=== PATIENT | female | born 1990 | race Caucasian/White ===

== ENCOUNTER 2017-02-19 13:43 | Emergency (ER) | payer MEDICAID ==
[2017-02-19 13:49] VITALS: TEMP 98.7
[2017-02-19 14:21] LABS: HCG,QUALITATIVE URINE NEGATIVE (NEGATIVE)
--- NOTE | 2017-02-19 14:38 | C.PDOC ---
History Of Present Illness 26 year old female presents to the ED with complaints of suprapubic abdominal tenderness with spotting for two days. Patient states LMP was 01/02/2017, she is irregular with her menstrual cycle, and is attempting to get . She took a test at home that was negative and denies fever, nausea, vomiting, or dysuria. Time Seen by Provider: 02/19/17 14:09 Chief Complaint (Nursing): Abdominal Pain History Per: Patient History/Exam Limitations: no limitations Onset/Duration Of Symptoms: Days (2 days ) Current Symptoms Are (Timing): Still Present Location Of Pain/Discomfort: Suprapubic Radiation Of Pain To:: None Quality Of Discomfort: "Pain" Associated Symptoms: denies: Fever, Chills, Nausea, Vomiting, Urinary Symptoms Recent travel outside of the [place]: No Abnormal Vaginal Bleeding: Yes Last Menstral Period: 01/02/2017 Past Medical History Reviewed: Historical Data, Nursing Documentation, Vital Signs Vital Signs: Last Vital Signs Temp 98.7 F 02/19/17 13:47 Pulse 77 02/19/17 17:46 Resp 18 02/19/17 17:46 BP 113/69 02/19/17 17:46 Pulse Ox 100 02/19/17 17:46 - [facility] Procedures APPLICATION OF SPLINT (01/25/15) Family History: States: Unknown Family Hx - Social History Hx Tobacco Use: No Hx Alcohol Use: No Hx Substance Use: No - Immunization History Hx Tetanus Toxoid Vaccination: No Hx Influenza Vaccination: No Hx Pneumococcal Vaccination: No Review Of Systems Constitutional: Negative for: Fever, Chills Cardiovascular: Negative for: Chest Pain Respiratory: Negative for: Shortness of Breath Gastrointestinal: Positive for: Abdominal Pain (suprapubic pain ). Negative for : Nausea, Vomiting Genitourinary: Positive for: Vaginal Bleeding. Negative for: Dysuria Musculoskeletal: Negative for: Back Pain Physical Exam - Physical Exam Appears: Non-toxic, No Acute Distress Skin: Warm, Dry Head: Atraumatic Eye(s): bilateral: Normal Inspection, PERRL, EOMI Oral Mucosa: Moist Neck: Supple Chest: Symmetrical, No Deformity Cardiovascular: Rhythm Regular Respiratory: Normal Breath Sounds, No Wheezing Gastrointestinal/Abdominal: Soft, Tenderness (mild suprapubic tenderness), No Distention, No Guarding, No Rebound Neurological/Psych: Oriented x3 ED Course And Treatment O2 Sat by Pulse Oximetry: 97 (room air ) - CT Scan/US pelvic US Other Rad Studies (CT/US): Read By Radiologist, Radiology Report Reviewed CT/US Interpretation: Accession No. : [id number]. Patient Name / ID : EM CAPONE S / [id number]. Exam Date : 02/19/2017 15:14:02 ( Approved ). Study Comment : Sex / Age : F / 26Y. Creator : Kristina Butler MD. Dictator : Kristina Butler MD. Superintendent Stevedoring : Middle [employer] Assistant Principal : Kristina Butler MD. Approver2 : Report Date : 02/19/2017 16:04:27. My Comment : . HISTORY: pelvic pain. COMPARISON: None available. TECHNIQUE: Real-time transabdominal pelvic ultrasound was performed. In addition a transvaginal pelvic ultrasound was necessary to better depict pelvic anatomy. FINDINGS: UTERUS: Measures 8.5 x 4.3 x 5.4 cm. Anteverted. ENDOMETRIUM: Measures 8 mm in diameter. CERVIX: No cervical abnormality identified. RIGHT OVARY: Measures 2.7 x 1.9 x 2.6 cm. Blood flow is demonstrated. LEFT OVARY: Measures 3.5 x 2.4 x 3.1 cm. Blood flow is demonstrated. 2.9 x 1.7 x 2.2 cm rounded anechoic avascular lesion compatible with a cyst. FREE FLUID: No significant free fluid noted. OTHER FINDINGS: None. IMPRESSION: 2.9 cm probable left ovarian cyst. Progress Note: Ultrasound and UA were ordered. left ovarian cyst was found. Patient wa d/c home with instructions to f/u with WALL ATTENDANT. Disposition - Disposition Disposition: HOME/ ROUTINE Disposition Time: 17:22 Condition: STABLE Additional Instructions: Follow up with OBGYN within 1-2 days. Return to ED if feel worse. Prescriptions: Naproxen [Naprosyn] 1 tab PO BID PRN #25 tab PRN Reason: Pain Famotidine [Pepcid] 20 mg PO BID #20 tab Ondansetron [Zofran Odt] 1 - 2 tab PO .Q4-6H PRN #20 odt PRN Reason: Nausea/Vomiting Instructions: Ovarian Cyst (ED) Print Language: BRUNEIAN - Clinical Impression Clinical Impression: Ovarian cyst, Pelvic cyst - Scribe Statement The provider has reviewed the documentation as recorded by the Scribketty Iniguez All medical record entries made by the Viola were at my direction and personally dictated by me. I have reviewed the chart and agree that the record accurately reflects my personal performance of the history, physical exam, medical decision making, and the department course for this patient. I have also personally directed, reviewed, and agree with the discharge instructions and disposition.
[2017-02-19 14:43] LABS: SQUAMOUS EPITHIAL 2 /hpf (0-5); URINE BACTERIA RARE (<OCC); URINE BILIRUBIN NEGATIVE (NEGATIVE); URINE BLOOD 3+ (NEGATIVE); URINE CLARITY Hazy (Clear); URINE COLOR Yellow (YELLOW); URINE GLUCOSE (UA) NORMAL (Normal); URINE LEUKOCYTE ESTERASE NEG Leu/uL (Negative); URINE NITRATE NEGATIVE (NEGATIVE); URINE PROTEIN NEGATIVE (NEGATIVE); URINE UROBILINOGEN NORMAL mg/dL (0.2-1.0)
--- NOTE | 2017-02-19 16:06 | US ---
HISTORY: pelvic pain COMPARISON: None available. TECHNIQUE: Real-time transabdominal pelvic ultrasound was performed. In addition a transvaginal pelvic ultrasound was necessary to better depict pelvic anatomy. FINDINGS: UTERUS: Measures 8.5 x 4.3 x 5.4 cm. Anteverted. ENDOMETRIUM: Measures 8 mm in diameter. CERVIX: No cervical abnormality identified. RIGHT OVARY: Measures 2.7 x 1.9 x 2.6 cm. Blood flow is demonstrated. LEFT OVARY: Measures 3.5 x 2.4 x 3.1 cm. Blood flow is demonstrated. 2.9 x 1.7 x 2.2 cm rounded anechoic avascular lesion compatible with a cyst. FREE FLUID: No significant free fluid noted. OTHER FINDINGS: None. IMPRESSION: 2.9 cm probable left ovarian cyst.
[2017-02-19 17:47] VITALS: BP 113/69; PULSE 77; RESP 18
[2017-02-19 22:03] VITALS: O2SAT 97
== END 2017-02-19 17:47 | disposition home or self-care (01) ==
LOC: C.ER 13:43
DX: N83.202 Unspecified ovarian cyst, left side (principal); N94.89 Other specified conditions associated with female genital organs and menstrual cycle

== ENCOUNTER 2017-03-08 13:42 | Emergency (ER) | payer MEDICAID ==
[2017-03-08 13:50] VITALS: O2SAT 100
--- NOTE | 2017-03-08 14:39 | C.PDOC ---
History Of Present Illness 26 yr old female presents to the ER with complaints of pelvic pain. Patient has frequent visits to the ER for similar complaints, last visit was February 19 and had a negative ultrasound. Patient has history of irregular menses. Denies fever , nausea, vomiting, diarrhea, dysuria, weakness or numbness. Time Seen by Provider: 03/08/17 14:09 Chief Complaint (Nursing): Abdominal Pain History Per: Patient History/Exam Limitations: no limitations Onset/Duration Of Symptoms: Days Current Symptoms Are (Timing): Still Present Past Medical History Reviewed: Historical Data, Nursing Documentation, Vital Signs Vital Signs: Last Vital Signs Temp 97.8 F 03/08/17 13:48 Pulse 80 03/08/17 13:48 Resp 18 03/08/17 13:48 BP 102/63 03/08/17 13:48 Pulse Ox 100 03/08/17 15:31 - [facility] Procedures APPLICATION OF SPLINT (01/25/15) Family History: States: No Known Family Hx - Social History Hx Tobacco Use: No Hx Alcohol Use: No Hx Substance Use: No - Immunization History Hx Tetanus Toxoid Vaccination: No Hx Influenza Vaccination: No Hx Pneumococcal Vaccination: No Review Of Systems Except As Marked, All Systems Reviewed And Found Negative. Constitutional: Negative for: Fever Gastrointestinal: Positive for: Other ((+) Pelvic pain ). Negative for: Nausea , Vomiting, Diarrhea Genitourinary: Negative for: Dysuria Neurological: Negative for: Weakness, Numbness Physical Exam - Physical Exam Appears: Non-toxic, No Acute Distress Skin: Warm, Dry, No Rash Head: Atraumatic, Normacephalic Oral Mucosa: Moist Cardiovascular: Rhythm Regular, No Murmur Respiratory: Normal Breath Sounds, No Rales, No Wheezing Gastrointestinal/Abdominal: Normal Exam, Soft, No Tenderness, No Guarding, No Rebound Extremity: Normal ROM, No Swelling Neurological/Psych: Oriented x3, Normal Speech, Normal Motor ED Course And Treatment - Laboratory Results Urine POC: Negative O2 Sat by Pulse Oximetry: 100 (RA) Pulse Ox Interpretation: Normal Medical Decision Making Medical Decision Making: PLAN: * POC * Urinalysis Disposition Counseled Patient/Family Regarding: Studies Performed, Diagnosis, Need For Followup, Rx Given - Disposition Referrals: [facility] [Outside] [facility] [Outside] Disposition: HOME/ ROUTINE Disposition Time: 16:07 Condition: IMPROVED Prescriptions: Naproxen 500 mg PO BID #30 tab Instructions: Pelvic Pain in Women (ED) Forms: [facility] (Malay) Print Language: MONGOLIAN - Clinical Impression Clinical Impression: Pelvic pain - Scribe Statement The provider has reviewed the documentation as recorded by the Andreeibketty Baldwin Provider Attestation: All medical record entries made by the Viola were at my direction and personally dictated by me. I have reviewed the chart and agree that the record accurately reflects my personal performance of the history, physical exam, medical decision making, and the department course for this patient. I have also personally directed, reviewed, and agree with the discharge instructions and disposition.
[2017-03-08 15:46] LABS: SQUAMOUS EPITHIAL 4 /hpf (0-5); URINE BILIRUBIN NEGATIVE (NEGATIVE); URINE BLOOD NEGATIVE (NEGATIVE); URINE CLARITY Hazy (Clear); URINE GLUCOSE (UA) NORMAL (Normal); URINE LEUKOCYTE ESTERASE NEG Leu/uL (Negative); URINE NITRATE NEGATIVE (NEGATIVE); URINE PROTEIN NEGATIVE (NEGATIVE); URINE UROBILINOGEN NORMAL mg/dL (0.2-1.0)
[2017-03-08 15:47] LABS: URINE COLOR YELLOW (YELLOW)
[2017-03-08 16:37] VITALS: BP 111/70; PULSE 78; RESP 16; TEMP 98.2
== END 2017-03-08 16:36 | disposition home or self-care (01) ==
LOC: C.ER 13:42
DX: R10.2 Pelvic and perineal pain (principal)
CPT/HCPCS: 81001; 96372; 99285; J1885

== ENCOUNTER 2017-06-14 10:57 | Emergency (ER) | payer SELFPAY ==
[2017-06-14 11:52] LABS: RBC URINE 2 /hpf (0-3); URINE BILIRUBIN NEGATIVE (NEGATIVE); URINE BLOOD NEGATIVE (NEGATIVE); URINE COLOR Amber (YELLOW); URINE GLUCOSE (UA) NORMAL (Normal); URINE KETONE NEGATIVE (NEGATIVE); URINE LEUKOCYTE ESTERASE NEG Leu/uL (Negative); URINE PROTEIN NEGATIVE (NEGATIVE); URINE UROBILINOGEN NORMAL mg/dL (0.2-1.0); WBC URINE 1 /hpf (0-5)
--- NOTE | 2017-06-14 11:53 | C.PDOC ---
History Of Present Illness 26 year old female presents to the ED for evaluation of left-sided adnexal pain which has been intermittent for the past 2 months. Patient has a history of cysts to the area, but has not followed up with her doctor yet as she was advised. Patient denies fever, chills, and has no other complaints at this time. Time Seen by Provider: 06/14/17 11:46 Chief Complaint (Nursing): Abdominal Pain History Per: Patient History/Exam Limitations: no limitations Onset/Duration Of Symptoms: Intermittent Episodes, Other (2 months ) Current Symptoms Are (Timing): Still Present Radiation Of Pain To:: None Quality Of Discomfort: "Pain" Associated Symptoms: denies: Fever, Chills Recent travel outside of the [place]: No Additional History Per: Patient Abnormal Vaginal Bleeding: No Past Medical History Reviewed: Historical Data, Nursing Documentation, Vital Signs Vital Signs: Last Vital Signs Temp 98.0 F 06/14/17 11:13 Pulse 71 06/14/17 11:13 Resp 18 06/14/17 11:13 BP 104/70 06/14/17 11:13 Pulse Ox 98 06/14/17 12:04 - Medical History PMH: No Chronic Diseases Surgical History: No Surg Hx - [facility] Procedures APPLICATION OF SPLINT (01/25/15) Family History: States: Unknown Family Hx - Social History Hx Tobacco Use: No Hx Alcohol Use: No Hx Substance Use: No - Immunization History Hx Tetanus Toxoid Vaccination: No Hx Influenza Vaccination: No Hx Pneumococcal Vaccination: No Review Of Systems Constitutional: Negative for: Fever, Chills Genitourinary: Positive for: Other (left adnexal pain ) Physical Exam - Physical Exam Appears: Non-toxic, No Acute Distress Skin: Normal Color, Warm, Dry Oral Mucosa: Moist Neck: Supple Chest: Symmetrical, No Deformity, No Tenderness Cardiovascular: Rhythm Regular, No Murmur Respiratory: Normal Breath Sounds, No Rales, No Rhonchi, No Wheezing Pelvic: Adnexal Tenderness (left-sided) Extremity: Normal ROM, Capillary Refill (less than 2 seconds ) Neurological/Psych: Oriented x3, Normal Speech, Normal Cognition Gait: Steady ED Course And Treatment O2 Sat by Pulse Oximetry: 98 (on RA) Pulse Ox Interpretation: Normal Medical Decision Making Medical Decision Making: Progress: Urinalysis and Transvaginal US ordered and reviewed. Tylenol PO administered. 218: pt observed on computer in nad. no rlq, llq ttp. no vb, discharge, adivse outpt fu return precautions Disposition - Disposition Referrals: [facility] [Outside] [facility] [Outside] [facility] [Outside] Alysha Ordonez MD [Staff Provider] - Disposition: HOME/ ROUTINE Disposition Time: 14:18 Condition: STABLE Additional Instructions: please follow up with your doctor/specialist. return to er with worsening symptoms or concerns. Instructions: Pelvic Pain in Women (ED), Ovarian Cyst (ED) Forms: [employer] (Afghan) - Clinical Impression Clinical Impression: Pelvic pain, Ovarian cyst - Scribe Statement The provider has reviewed the documentation as recorded by the Scribe (Kierra Choudhary) Provider Attestation: All medical record entries made by the Scribe were at my direction and personally dictated by me. I have reviewed the chart and agree that the record accurately reflects my personal performance of the history, physical exam, medical decision making, and the department course for this patient. I have also personally directed, reviewed, and agree with the discharge instructions and disposition.
--- NOTE | 2017-06-14 14:12 | US ---
HISTORY: left sided pelvic pain h/o of cyst COMPARISON: None available. TECHNIQUE: Transabdominal and transvaginal pelvic ultrasound was performed. FINDINGS: UTERUS: Measures 8.4 x 4.2 x 5.3 cm. Retroverted, normal in size with normal myometrial echotexture. . No fibroid or other mass lesion seen. ENDOMETRIUM: Measures 5.0 mm in diameter. Normal in appearance. CERVIX: No cervical abnormality identified. RIGHT OVARY: Measures 4.6 x 3.3 x 4.2 cm. No solid mass. Normal flow. There is a 3.4 x 2.2 x 3.0 cm simple cyst. LEFT OVARY: Measures 2.2 x 1.2 x 1.7 cm. No solid mass. Normal flow. FREE FLUID: No significant free fluid noted. OTHER FINDINGS: None. IMPRESSION: 3.4 cm simple cyst in the right ovary. No evidence of torsion.
[2017-06-14 14:43] VITALS: BP 100/64; PULSE 70; RESP 16; TEMP 98.7; O2SAT 96
== END 2017-06-14 14:45 | disposition home or self-care (01) ==
LOC: C.ER 10:57
DX: N83.291 Other ovarian cyst, right side (principal); R10.2 Pelvic and perineal pain

== ENCOUNTER 2017-08-18 10:52 | Day surgery (SDC) | payer BC ==
[2017-08-12 11:36] VITALS: BMI 25.8
[2017-08-18] MEDS ORDERED: Methylene Blue 10 mg/mL(10ml) IV ONE (12:15)
[2017-08-18] MEDS ORDERED: Bupivacaine HCl 0.25% PF (10 ml) Inj ONE (12:16)
[2017-08-18] MEDS ORDERED: Midazolam 2 MG/2 ML VIAL ONE (12:43)
[2017-08-18] MEDS ORDERED: Propofol 10 mg/ml Inj (20 ML) ONE (12:43)
[2017-08-18] MEDS ORDERED: Lactated Ringer's 1,000 ML IV ONE ×3 (12:55→14:20)
[2017-08-18] MEDS ORDERED: Neostigmine Methylsulfate 3mg/3ml Syringe IV ONE (14:04)
--- NOTE | 2017-08-18 14:24 | PCM.SURG1 ---
Surgeon's Initial Post Op Note - Surgeon's Notes Surgeon: Dr. Constance Powell Multiplex Operator: Dr. Delgadillo Type of Anesthesia: General Endo Pre-Operative Diagnosis: chronic pelvic pain, dysmenorrhea, menorrhagia, PCOS, hx of ovarian cyst, infertility Operative Findings: Uterus approx 10 week sized, normal appearing intrauterine cavity with bilateral ostia seen. Fallopian tubes patent bilaterally, adhesion between omentum and anterior abdominal wall, multiple follicles in ovaries bilaterally. Otherwise normal anatomy. Post-Operative Diagnosis: same Operation Performed: Laparoscopic ovarian drilling, lysis of adhesions, chromotubation, hysteroscopy D&C. Specimen/Specimens Removed: endometrial curettings Estimated Blood Loss: EBL {In ML}: 5 Blood Products Given: N/A Drains Used: No Drains Post-Op Condition: Good Date of Surgery/Procedure: 08/18/17 Time of Surgery/Procedure: 14:25
[2017-08-18] MEDS ORDERED: HYDROmorphone 0.5 mg/0.5 ml ISec IVP PRN (14:26)
--- NOTE | 2017-08-18 14:33 | CP.PCM.DIS ---
Provider - Provider Date of Admission: 08/18/17 Attending physician: Constance Powell Time Spent in preparation of Discharge (in minutes): 10 Diagnosis - Discharge Diagnosis (1) Chronic female pelvic pain Status: Acute (2) PCOS (polycystic ovarian syndrome) Status: Acute (3) Menorrhagia Status: Acute (4) Ovarian cyst Status: Acute Hospital Course - Hospital Course Hospital Course: Patient underwent laparoscopic ovarian drilling, lysis of adhesions, chromotubation, hysteroscopy d&c and tolerated the procedure well. She was discharged home in stable condition once she was ambulating, voiding and tolerating regular diet. Discharge Exam - Eye Exam Eye Exam: Normal appearance - Respiratory Exam Respiratory Exam: NORMAL BREATHING PATTERN - GI/Abdominal Exam GI & Abdominal Exam: Unremarkable - Neurological Exam Neurological exam: Alert, Oriented x3 - Psychiatric Exam Psychiatric exam: Normal Affect, Normal Mood - Skin Skin Exam: Normal Color Discharge Plan - Follow Up Plan Condition: GOOD Disposition: HOME/ ROUTINE
[2017-08-18 18:59] VITALS: RESP 16
[2017-08-18 19:05] VITALS: BP 93/70; PULSE 85; TEMP 97.8; O2SAT 98
--- NOTE | 2017-08-18 22:05 | OP ---
PROCEDURE DATE: SURGEON: Constance Powell MD RUBBER MILL TENDER SURGEON: Yoni Delgadillo M.D. TYPE OF ANESTHESIA: General endotracheal. PREOPERATIVE DIAGNOSES: Chronic pelvic pain, dysmenorrhea, menorrhagia, polycystic ovary syndrome, history of ovarian cysts, and infertility. INTRAOPERATIVE FINDINGS: The uterus is approximately 10-week size, normal-appearing intrauterine cavity with bilateral ostia seen, fallopian tubes patent bilaterally, adhesions between omentum and anterior abdominal wall, multiple follicles in ovaries bilaterally. Otherwise, normal anatomy. POSTOPERATIVE DIAGNOSES: Chronic pelvic pain, dysmenorrhea, menorrhagia, polycystic ovary syndrome, history of ovarian cysts, and infertility. SURGERY PERFORMED: Laparoscopic ovarian drilling, lysis of adhesions, chromopertubation, hysteroscopy, dilation and curettage. SPECIMEN: The specimen removed was the endometrial curetting. ESTIMATED BLOOD LOSS: 5 mL. BLOOD PRODUCTS GIVEN: None. DRAINS: There were no drains used. POSTOPERATIVE CONDITION: Stable. DESCRIPTION OF PROCEDURE: After all relevant documentation was reviewed and signed by MD, patient was taken back to the OR room. She was placed in lithotomy position, prepped and draped in the usual sterile fashion after being placed under general anesthesia. Attention was then placed to the cervix, which was visualized with a bivalved speculum and the posterior lip of the cervix was then grasped with single-tooth tenaculum and the cervix was gently serially dilated until the hysteroscope could be introduced. Once the hysteroscope was in, the previously mentioned findings were noted. The hysteroscope was then removed. A gentle sharp curettage was performed. The HUMI was then introduced and the single-tooth tenaculum and speculum were removed. Attention was then placed to the patient's abdomen where a 5-mm umbilical incision was made and then we entered the intraabdominal cavity under direct visualization. Once inside the intraabdominal cavity and pneumoperitoneum was achieved, attention was then placed to the left lower quadrant where a 5-mm incision was made and a 5-mm port was introduced under direct visualization. In the similar fashion, a right lower quadrant port was also introduced 5 mm under direct visualization. A dense adhesion of omentum was noted to the anterior abdominal wall anterior to the uterus and this was lysed with the use of a LigaSure. Once the adhesion was removed, attention was then placed to the left fallopian tube and the left ovary. At which point, the left ovary was drilled. In a similar fashion, the right ovary was tented up and also proceeded with multiple drilling from the right. Once this was completed, chromopertubation was performed and bilateral fallopian tubes were noted to be patent. Excellent hemostasis was noted. The pneumoperitoneum was evacuated and the ports were closed with the use of 3-0 Monocryl in a subcuticular fashion. Excellent hemostasis was noted. The HUMI was removed. No active bleeding was noted and the patient was then awoken from general anesthesia and taken back to the recovery room in stable condition. All lap counts and instrument counts were correct x2. Constance Powell MD
== END 2017-08-18 19:05 | disposition home health service (06) ==
LOC: C.SDS 10:52
PROVIDERS: ATTEND Obstetrics & Gynecology
DX: N83.02 Follicular cyst of left ovary (principal); N92.0 Excessive and frequent menstruation with regular cycle; N94.6 Dysmenorrhea, unspecified
CPT/HCPCS: 58558; 88305; J1170; J2250; J2704; J2710; J3010; J7120

== ENCOUNTER 2017-09-29 12:54 | Emergency (ER) | payer BC, OTHER ==
[2017-09-29 12:55] VITALS: BMI 25.8
[2017-09-29 13:01] VITALS: RESP 20
[2017-09-29 13:29] LABS: HCG,QUALITATIVE URINE NEGATIVE (NEGATIVE)
[2017-09-29 13:44] LABS: URINE BILIRUBIN NEGATIVE (NEGATIVE); URINE BLOOD SMALL (NEGATIVE); URINE CLARITY Hazy (Clear); URINE COLOR YELLOW (YELLOW); URINE GLUCOSE (UA) NEGATIVE (Normal)
[2017-09-29 13:45] LABS: URINE LEUKOCYTE ESTERASE NEGATIVE Leu/uL (Negative); URINE NITRATE NEGATIVE (NEGATIVE); URINE PROTEIN NEGATIVE (NEGATIVE); URINE UROBILINOGEN 0.2 mg/dL (0.2-1.0)
[2017-09-29 13:46] LABS: URINE BACTERIA OCC (<OCC)
--- NOTE | 2017-09-29 14:06 | C.PDOC ---
History Of Present Illness 27 y/o female presents to ED with complaints of vaginal discharge with abdominal cramping for 2 days. Patient is unsure if symptoms are secondary to period and states she is trying to get . Patient is requesting test and denies back pain, dysuria, nausea, vomiting or diarrhea. Time Seen by Provider: 09/29/17 13:14 Chief Complaint (Nursing): Abdominal Pain History Per: Patient History/Exam Limitations: no limitations Onset/Duration Of Symptoms: Days Current Symptoms Are (Timing): Still Present Quality Of Discomfort: Cramping Past Medical History Reviewed: Historical Data, Nursing Documentation, Vital Signs Vital Signs: Last Vital Signs Temp 97.8 F 09/29/17 14:20 Pulse 71 09/29/17 14:20 Resp 20 09/29/17 14:20 BP 112/79 09/29/17 14:20 Pulse Ox 100 09/29/17 14:37 - Medical History PMH: No Chronic Diseases Surgical History: No Surg Hx - [facility] Procedures APPLICATION OF SPLINT (01/25/15) Family History: States: No Known Family Hx - Social History Hx Tobacco Use: No Hx Alcohol Use: No Hx Substance Use: No - Immunization History Hx Tetanus Toxoid Vaccination: No Hx Influenza Vaccination: No Hx Pneumococcal Vaccination: No Review Of Systems Constitutional: Negative for: Fever, Chills Gastrointestinal: Positive for: Abdominal Pain Genitourinary: Positive for: Vaginal Discharge. Negative for: Dysuria, Vaginal Bleeding Musculoskeletal: Negative for: Back Pain Skin: Negative for: Rash Physical Exam - Physical Exam Appears: Non-toxic, No Acute Distress Skin: Warm, Dry, No Rash Head: Atraumatic, Normacephalic Oral Mucosa: Moist Neck: Normal ROM, Supple Cardiovascular: Rhythm Regular, No Murmur Respiratory: Normal Breath Sounds, No Rales, No Rhonchi, No Wheezing Gastrointestinal/Abdominal: Soft, No Tenderness, No Guarding, No Rebound Back: No CVA Tenderness Neurological/Psych: Oriented x3, Normal Speech ED Course And Treatment O2 Sat by Pulse Oximetry: 100 (RA) Pulse Ox Interpretation: Normal Medical Decision Making Medical Decision Making: test was negative. UA shows no UTI Patient remained well, seated comfortably in no distress. Patient informed of negative result, stable for discharge Disposition Counseled Patient/Family Regarding: Diagnosis, Need For Followup - Disposition Disposition: HOME/ ROUTINE Disposition Time: 14:03 Condition: STABLE Additional Instructions: Vaya a blackmon mdico o la clnica en 2-5 juarez sin falta, para mas evaluacin. [place] los medicamentos ness indicado. Volver a la yoanna de emergencia en cualquier momento si los sntomas persisten o empeoran. Instructions: Absent or Irregular Periods Forms: [employer] (Slovenian) Print Language: GREENLANDIC - POA Present On Arrival: None - Clinical Impression Clinical Impression: Negative test, DUB (dysfunctional uterine bleeding) - PA / VIBRATING SCREEN OPERATOR / Resident Statement MD/DO has reviewed & agrees with the documentation as recorded. - Scribe Statement The provider has reviewed the documentation as recorded by the Scribketty Gunter All medical record entries made by the Scribe were at my direction and personally dictated by me. I have reviewed the chart and agree that the record accurately reflects my personal performance of the history, physical exam, medical decision making, and the department course for this patient. I have also personally directed, reviewed, and agree with the discharge instructions and disposition.
[2017-09-29 14:21] VITALS: BP 112/79; PULSE 71; TEMP 97.8
[2017-09-29 14:36] VITALS: O2SAT 100
== END 2017-09-29 14:21 | disposition home or self-care (01) ==
LOC: C.ER 12:54
DX: N93.8 Other specified abnormal uterine and vaginal bleeding (principal); Z32.02 Encounter for pregnancy test, result negative

== ENCOUNTER 2017-10-12 17:03 | Emergency (ER) | payer BC ==
[2017-10-12 17:03] VITALS: BMI 25.8
[2017-10-12 17:11] VITALS: RESP 18; O2SAT 99
[2017-10-12 18:33] LABS: HCG,QUALITATIVE URINE NEGATIVE (NEGATIVE)
[2017-10-12 18:34] LABS: SQUAMOUS EPITHIAL 1 /hpf (0-5); URINE BACTERIA RARE (<OCC); URINE BILIRUBIN NEGATIVE (NEGATIVE); URINE BLOOD NEGATIVE (NEGATIVE); URINE CLARITY Clear (Clear); URINE COLOR Yellow (YELLOW); URINE GLUCOSE (UA) NORMAL (Normal); URINE LEUKOCYTE ESTERASE NEG Leu/uL (Negative); URINE PROTEIN NEGATIVE (NEGATIVE); URINE UROBILINOGEN NORMAL mg/dL (0.2-1.0)
[2017-10-12 19:02] LABS: BASO # 0.2 K/uL (0.0-0.2); BASO % 2.1 % (0.0-2.0); EOS % 0.4 % (0.0-4.0); HEMOGLOBIN 12.6 g/dL (11.0-16.0); LYMPH % 19.7 % (20.0-40.0); MEAN CELL VOLUME 85.2 fL (81.0-99.0); MEAN CORPUSCULAR HEMOGLOBIN 28.2 pg (27.0-31.0); MEAN CORPUSCULAR HGB CONC 33.1 g/dL (33.0-37.0); MEAN PLATELET VOLUME 9.1 fL (7.2-11.7); MONO # 0.8 K/uL (0.0-0.8); MONO % 8.4 % (0.0-10.0); NEUT % 69.4 % (50.0-75.0); NRBC % 0.1 % (0.0-2.0); RBC 4.45 Mil/uL (3.80-5.20)
[2017-10-12 19:04] LABS: WHITE BLOOD COUNT 10.1 K/uL (4.8-10.8)
[2017-10-12 19:11] LABS: ALB/GLOB RATIO 1.2 (1.0-2.1); ALBUMIN 4.3 g/dL (3.5-5.0); ALT/SGPT 31 U/L (9-52); AST/SGOT 25 U/L (14-36); BLOOD UREA NITROGEN 12 mg/dL (7-17); CALCIUM 9.1 mg/dl (8.6-10.4); GFR AFRICAN-AMERICAN > 60; GFR NON-AFRICAN AMERICAN > 60
[2017-10-12 21:16] VITALS: BP 98/64; PULSE 78; TEMP 98.4
--- NOTE | 2017-10-12 21:29 | US ---
EXAM: US Pelvis Complete, Transabdominal CLINICAL HISTORY: 27 years old, female; Pain; Pelvic pain; Prior surgery; Surgery date: 1-6 months; Surgery type: Ovarian surgery; Additional info: Pelvic pain. H/o ovarian cyst surgery. TECHNIQUE: Real-time transabdominal pelvic ultrasound (complete) with image documentation. COMPARISON: No relevant prior studies available. FINDINGS: Uterus/cervix: The uterus measures 10.3 x 4.4 x 6.3 cm. The endometrial stripe measures 9 mm. No myometrial mass. Right ovary: The right ovary is not seen as a separate structure transabdominally. Left ovary: The left ovary measures 2.8 x 2.2 x 2.1 cm. Blood flow seen in the left ovary on pulsed Doppler examination and color Doppler examination. Bladder: Unremarkable as visualized. Wall is normal thickness for degree of distention. IMPRESSION: 1. Nonvisualization of the right ovary on the transabdominal portion examination. Otherwise unremarkable study. EXAM: US Pelvis, Transvaginal EXAM DATE/TIME Exam ordered 10/12/2017 6:41 PM CLINICAL HISTORY: 27 years old, female; Pain; Pelvic pain; Prior surgery; Surgery date: 1-6 months; Surgery type: Ovarian surgery; Additional info: Pelvic pain. H/o ovarian cyst surgery. TECHNIQUE: Real-time transvaginal pelvic ultrasound (complete) with image documentation. Transvaginal imaging was used for better evaluation of the endometrium and adnexa. COMPARISON: US - TRANSVAGINAL 2015-09-14 12:59 FINDINGS: Uterus/cervix: The uterus measures 7.9 x 3.9 x 5.3 cm. Nabothian cyst is noted in the cervix. The endometrial stripe measures 8 mm. The uterus is retroverted and retroflexed. Right ovary: The right ovary measures 4.4 x 2.9 x 5.3 cm.. Several cystic areas are noted. A simple cyst measuring 2.4 cm in maximum diameter is noted. A second complex cyst with lacelike internal septations and retracting thrombus is noted measuring 2.8 cm in greatest diameter. A small amount of fluid surrounds the right ovary. Blood flow seen in the right ovary on color Doppler examination. Left ovary: The left ovary measures 3 x 1 x 2.6 cm. Subcentimeter follicles are present. Blood flow seen on pulsed Doppler examination. Free fluid: A trace amount of free fluid is seen in the posterior cul-de-sac. Bladder: Empty bladder which cannot be evaluated with this probe. IMPRESSION: Several cysts in the right ovary. Of the 2 largest, one is a simple cyst and the second is a hemorrhagic cyst. No suspicious features.
--- NOTE | 2017-10-12 21:51 | C.PDOC ---
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 Limitations: language barrier Onset/Duration Of Symptoms: Days (1) Current Symptoms Are (Timing): Still Present Severity: Moderate Location Of Pain/Discomfort: Suprapubic Quality Of Discomfort: "Pain" Exacerbating Factors: None Alleviating Factors: None Additional History Per: Prior Records Abnormal Vaginal Bleeding: No Past Medical History Reviewed: Historical Data, Nursing Documentation, Vital Signs Vital Signs: Last Vital Signs Temp 98.4 F 10/12/17 21:15 Pulse 78 10/12/17 21:15 Resp 18 10/12/17 21:15 BP 98/64 L 10/12/17 21:15 Pulse Ox 99 10/12/17 21:15 - Medical History PMH: No Chronic Diseases Other Surgeries: b/l ovarian cyst removal - [facility] Procedures APPLICATION OF SPLINT (01/25/15) Family History: States: Unknown Family Hx - Social History Hx Tobacco Use: No Hx Alcohol Use: No Hx Substance Use: No - Immunization History Hx Tetanus Toxoid Vaccination: No Hx Influenza Vaccination: No Hx Pneumococcal Vaccination: No Review Of Systems Except As Marked, All Systems Reviewed And Found Negative. Constitutional: Negative for: Fever, Weakness Cardiovascular: Negative for: Chest Pain Respiratory: Negative for: Shortness of Breath Gastrointestinal: Negative for: Vomiting, Diarrhea Genitourinary: Positive for: Pelvic Pain. Negative for: Dysuria, Vaginal Discharge, Vaginal Bleeding Musculoskeletal: Positive for: Back Pain (low). Negative for: Neck Pain Skin: Negative for: Rash Neurological: Negative for: Weakness, Numbness, Seizures, Altered Mental Status Physical Exam - Physical Exam Appears: Non-toxic, No Acute Distress Skin: Normal Color, Warm, Dry, No Rash Head: Atraumatic, Normacephalic Eye(s): bilateral: Normal Inspection, PERRL, EOMI Neck: Normal ROM, Supple Cardiovascular: Rhythm Regular Respiratory: Normal Breath Sounds, No Accessory Muscle Use Gastrointestinal/Abdominal: Soft, Tenderness (suprapubic), No Guarding, No Rebound Back: No CVA Tenderness Extremity: Normal ROM Neurological/Psych: Oriented x3, Normal Motor, Normal Sensation ED Course And Treatment - Laboratory Results Result Diagrams: 10/12/17 18:56 10/12/17 18:56 Lab Interpretation: No Acute Changes Urine POC: Negative O2 Sat by Pulse Oximetry: 99 Pulse Ox Interpretation: Normal - CT Scan/US Pelvic US Other Rad Studies (CT/US): Read By Radiologist, Radiology Report Reviewed CT/US Interpretation: IMPRESSION: Several cysts in the right ovary. Of the 2 largest, one is a simple cyst and. the second is a hemorrhagic cyst. No suspicious features. Reassessment Condition: Improved Disposition Counseled Patient/Family Regarding: Studies Performed, Diagnosis, Need For Followup, Rx Given - Disposition Referrals: Constance Powell MD [Staff Provider] - Disposition: HOME/ ROUTINE Disposition Time: 21:52 Condition: IMPROVED Additional Instructions: Follow up with your School Counsellor for further evaluation and treatment. Return to the ER if you develop fever, vomiting, dizziness, worsening of symptoms or if you have any other concerns. Prescriptions: Naproxen [Naprosyn] 1 tab PO BID PRN #20 tab PRN Reason: Pain Instructions: Ovarian Cyst (DC) Forms: [employer] (French) - Clinical Impression Clinical Impression: Hemorrhagic cyst of right ovary
== END 2017-10-12 22:11 | disposition home or self-care (01) ==
LOC: C.ER 17:03
DX: N83.201 Unspecified ovarian cyst, right side (principal)
CPT/HCPCS: 76830; 76856; 80053; 81001; 84703; 85025; 96374; 99285; J1885

== ENCOUNTER 2017-10-20 14:07 | Emergency (ER) | payer BC ==
[2017-10-20 14:07] VITALS: BMI 25.8
[2017-10-20 14:23] VITALS: TEMP 98.5
[2017-10-20 15:09] LABS: HCG,QUALITATIVE URINE NEGATIVE (NEGATIVE)
--- NOTE | 2017-10-20 15:16 | C.PDOC ---
History Of Present Illness 27 yo female come in for evaluation of suprapubic pain gradually developed for past few days. Pt reports, pain is localized, non-radiating, intermittent. Otherwise, pt denies fever, chills, recent illness, sore throat, cough, CP, SOB , dyspnea, N/V/D, change in appetite, back pain, UTI sx, denies vaginal irritation or discharges. Ambulate to Ed for evaluation, not in any apparent distress. FYI: Previous ED records review, pt was seen here in ED multiple times due to same complaints. Last visit on 09/29/17 and 10/12/17, pt had blood work with normal results, US transvaginal (+) Right ovarian cyst 4#2#5 hemorrhagic and one simple cyst 2.4 cm Time Seen by Provider: 10/20/17 14:25 Chief Complaint (Nursing): Abdominal Pain History Per: Patient Onset/Duration Of Symptoms: Gradual Past Medical History Reviewed: Historical Data, Nursing Documentation, Vital Signs Vital Signs: Last Vital Signs Temp 98.5 F 10/20/17 14:22 Pulse 81 10/20/17 18:35 Resp 16 10/20/17 18:35 BP 93/62 L 10/20/17 18:35 Pulse Ox 98 10/20/17 18:44 - Medical History PMH: No Chronic Diseases Denies: Chronic Kidney Disease - [facility] Procedures APPLICATION OF SPLINT (01/25/15) Family History: States: No Known Family Hx - Social History Hx Tobacco Use: No Hx Alcohol Use: No Hx Substance Use: No - Immunization History Hx Tetanus Toxoid Vaccination: No Hx Influenza Vaccination: No Hx Pneumococcal Vaccination: No Review Of Systems Except As Marked, All Systems Reviewed And Found Negative. Constitutional: Negative for: Fever, Chills ENT: Negative for: Throat Pain, Throat Swelling Cardiovascular: Negative for: Chest Pain, Palpitations Respiratory: Negative for: Cough, Shortness of Breath Gastrointestinal: Positive for: Abdominal Pain (suprapubic). Negative for: Nausea, Vomiting, Diarrhea, Hematochezia, Hematemesis Genitourinary: Negative for: Dysuria, Frequency, Incontinence Musculoskeletal: Negative for: Neck Pain, Back Pain Skin: Negative for: Rash Neurological: Negative for: Weakness, Numbness, Altered Mental Status, Headache , Dizziness Physical Exam - Physical Exam Appears: Well, Non-toxic, No Acute Distress Skin: Normal Color, Warm, Dry, No Rash Head: Normacephalic Eye(s): bilateral: PERRL Nose: No Flaring, No Discharge Oral Mucosa: Moist Tongue: Normal Appearing Lips: Normal Appearing Throat: No Erythema, No Drooling Neck: Trachea Midline, Supple Cardiovascular: Rhythm Regular Respiratory: No Decreased Breath Sounds, No Accessory Muscle Use, No Rales, No Rhonchi, No Stridor, No Wheezing Gastrointestinal/Abdominal: Soft, Tenderness (mild suprapubic), No Distention, No Guarding, No Rebound Back: No CVA Tenderness Extremity: Normal ROM, No Deformity, No Swelling Neurological/Psych: Oriented x3, Normal Speech ED Course And Treatment - Laboratory Results Result Diagrams: 10/20/17 16:17 10/20/17 16:17 Lab Interpretation: No Acute Changes Urine POC: Negative O2 Sat by Pulse Oximetry: 98 Pulse Ox Interpretation: Normal - CT Scan/US CT abd/pelvis Other Rad Studies (CT/US): Radiology Report Reviewed CT/US Interpretation: IMPRESSION: 1. No CT evidence for acute appendicitis. 2. Rim enhancing 2.5 cm loculated cystic lesion in the right adnexa most compatible with a complicated ovarian cyst. Moderate amount of free fluid in the right adnexa and pelvis likely represents partial rupture of the ovarian cyst. Please correlate with pelvic ultrasound examination. Progress Note: On re-evaluation, pt is afebrile, hemodynamicaly stable. Non- toxic. Tolerate PO well in ED. PulseOx 98% RA. Neck: Supple, (-) meningeal sign. ENT: no acute findings. Lungs: CTA B/L, BS equal B/L. CVS: (+)S1S2, reg. Abd: benign, (-) guarding, (-) rebound. back: (-) CVA tenderness. Blood work review and appears normal. UA- normal results. CT abd/pelvis review, no new aucte findings noted. Pt has clinical findings c/w Right ovarian cyst. Pt advised. ref. to f/u with BRAKE TESTER in 2-3 days for re-eval. return if any new changes. Disposition Counseled Patient/Family Regarding: Studies Performed, Diagnosis, Need For Followup, Rx Given - [facility]position [facility] Disposition: HOME/ ROUTINE Disposition Time: 17:40 Condition: STABLE Additional Instructions: Encourage fluids Follow up with BRAKE TESTER In 2-3 days for re-evaluation. Return to ED if any worsening or new changes. Prescriptions: traMADol [Ultram] 50 mg PO TID #7 tab Instructions: Ovarian Cysts Forms: [facility] (Polish) Print Language: ARABIC - Clinical Impression Clinical Impression: Ovarian cyst
[2017-10-20 15:55] LABS: SQUAMOUS EPITHIAL 4 /hpf (0-5); URINE BILIRUBIN NEGATIVE (NEGATIVE); URINE BLOOD NEGATIVE (NEGATIVE); URINE CLARITY Clear (Clear); URINE COLOR Yellow (YELLOW); URINE GLUCOSE (UA) NORMAL (Normal); URINE LEUKOCYTE ESTERASE NEG Leu/uL (Negative); URINE PROTEIN NEGATIVE (NEGATIVE); URINE UROBILINOGEN NORMAL mg/dL (0.2-1.0)
[2017-10-20 16:20] LABS: BASO % 0.3 % (0.0-2.0); EOS # 0.1 K/uL (0.0-0.7); EOS % 0.7 % (0.0-4.0); HEMOGLOBIN 13.1 g/dL (11.0-16.0); LYMPH # 2.6 K/uL (1.0-4.3); LYMPH % 25.9 % (20.0-40.0); MEAN CELL VOLUME 85.4 fL (81.0-99.0); MEAN CORPUSCULAR HEMOGLOBIN 28.6 pg (27.0-31.0); MEAN CORPUSCULAR HGB CONC 33.4 g/dL (33.0-37.0); MEAN PLATELET VOLUME 9.2 fL (7.2-11.7); MONO # 0.7 K/uL (0.0-0.8); MONO % 7.3 % (0.0-10.0); NEUT # 6.7 K/uL (1.8-7.0); NEUT % 65.8 % (50.0-75.0); NRBC % 0.1 % (0.0-2.0); RBC 4.59 Mil/uL (3.80-5.20); RED CELL DISTRIBUTION WIDTH 12.8 % (11.5-14.5); WHITE BLOOD COUNT 10.2 K/uL (4.8-10.8)
[2017-10-20 16:50] LABS: BLOOD UREA NITROGEN 11 mg/dL (7-17); CALCIUM 9.3 mg/dl (8.6-10.4); GFR AFRICAN-AMERICAN > 60; GFR NON-AFRICAN AMERICAN > 60
[2017-10-20] MEDS ORDERED: Iodixanol 320 MG/ML 100 ML BOTTLE IV ONE (17:08)
--- NOTE | 2017-10-20 17:56 | CT ---
PROCEDURE: CT Abdomen and Pelvis with contrast HISTORY: RLQ pain COMPARISON: Pelvic ultrasound from 10/12/2017 TECHNIQUE: CT scan of the abdomen and pelvis was performed after administration of intravenous contrast. Oral contrast was not administered. Coronal and sagittal reformatted images were obtained. Contrast dose: We will Radiation dose: Total exam DLP = 661.03 mGy-cm. This CT exam was performed using one or more of the following dose reduction techniques: Automated exposure control, adjustment of the mA and/or kV according to patient size, and/or use of iterative reconstruction technique. FINDINGS: LOWER THORAX: The lung bases are clear. LIVER: The liver is normal in size and there is homogeneous enhancement. No gross lesion or ductal dilatation. GALLBLADDER AND BILE DUCTS: There are no calcified gallstones. PANCREAS: Normal in size with homogeneous enhancement. No gross lesion or ductal dilatation. SPLEEN: Normal in size and appearance. ADRENALS: No discrete nodule. KIDNEYS AND URETERS: Normal in size with homogeneous enhancement. No hydronephrosis. No solid mass. VASCULATURE: No aortic aneurysm. BOWEL: The proximal small bowel loops are normal in caliber. There are fluid filled normal caliber mid and distal small bowel loops. The ileocecal junction is normal. There is moderate amount of stool scattered throughout the colon. No bowel dilatation or obstruction. APPENDIX: The appendix is normal in caliber and there are no inflammatory changes in the right lower quadrant PERITONEUM: There is moderate amount of free fluid in the pelvis and right adnexa. No free air. LYMPH NODES: No enlarged lymph nodes. BLADDER: Grossly normal in appearance. REPRODUCTIVE: The uterus is normal in size. There is redemonstration of arcuate morphology. There is an apparent rim enhancing loculated cystic lesion in the right adnexa measuring 2.5 cm. BONES: No acute fracture. Within normal limits for the patient's age. OTHER FINDINGS: None. IMPRESSION: 1. No CT evidence for acute appendicitis. 2. Rim enhancing 2.5 cm loculated cystic lesion in the right adnexa most compatible with a complicated ovarian cyst. Moderate amount of free fluid in the right adnexa and pelvis likely represents partial rupture of the ovarian cyst. Please correlate with pelvic ultrasound examination.
[2017-10-20 18:36] VITALS: BP 93/62; PULSE 81; RESP 16
[2017-10-20 18:44] VITALS: O2SAT 98
== END 2017-10-20 19:11 | disposition home or self-care (01) ==
LOC: C.ER 14:07
DX: N83.201 Unspecified ovarian cyst, right side (principal)
CPT/HCPCS: 74177; 80048; 81001; 84703; 85025; 99285; Q9967

== ENCOUNTER 2017-11-09 12:29 | Emergency (ER) | payer BC ==
[2017-11-09 12:29] VITALS: BMI 25.8
[2017-11-09 13:05] VITALS: O2SAT 100
[2017-11-09] MEDS ORDERED: Sodium Chloride 0.9% 1,000 ML IV ONE (15:52)
[2017-11-09 15:55] LABS: BASO % 0.2 % (0.0-2.0); EOS % 0.5 % (0.0-4.0); HEMOGLOBIN 12.2 g/dL (11.0-16.0); LYMPH # 2.2 K/uL (1.0-4.3); LYMPH % 22.2 % (20.0-40.0); MEAN CELL VOLUME 85.7 fL (81.0-99.0); MEAN CORPUSCULAR HEMOGLOBIN 28.9 pg (27.0-31.0); MEAN CORPUSCULAR HGB CONC 33.7 g/dL (33.0-37.0); MEAN PLATELET VOLUME 9.2 fL (7.2-11.7); MONO # 0.9 K/uL (0.0-0.8); MONO % 8.5 % (0.0-10.0); NEUT # 6.9 K/uL (1.8-7.0); NEUT % 68.6 % (50.0-75.0); RBC 4.22 Mil/uL (3.80-5.20); RED CELL DISTRIBUTION WIDTH 13.1 % (11.5-14.5); WHITE BLOOD COUNT 10.1 K/uL (4.8-10.8)
--- NOTE | 2017-11-09 15:57 | C.PDOC ---
History Of Present Illness 27 year old female, who is currently around 6 weeks (), presents to the ED for evaluation of abdominal cramping and vaginal spotting which began today. Patient states her LMP was 09/28/17 and she did not receive any care today. She denies vomiting, diarrhea. Time Seen by Provider: 11/09/17 15:31 Chief Complaint (Nursing): Female Genitourinary History Per: Patient History/Exam Limitations: no limitations Onset/Duration Of Symptoms: Hrs Current Symptoms Are (Timing): Still Present Quality Of Discomfort: Cramping Associated Symptoms: denies: Vomiting, Diarrhea Abnormal Vaginal Bleeding: Yes Last Menstral Period: 09/28/2017 : 3 Para: 2 Past Medical History Reviewed: Historical Data, Nursing Documentation, Vital Signs Vital Signs: Last Vital Signs Temp 98.1 F 11/09/17 13:03 Pulse 74 11/09/17 13:03 Resp 18 11/09/17 13:03 BP 112/78 11/09/17 13:03 Pulse Ox 100 11/09/17 18:00 - Medical History PMH: No Chronic Diseases Denies: Chronic Kidney Disease Surgical History: No Surg Hx - [facility] Procedures APPLICATION OF SPLINT (01/25/15) Family History: States: Unknown Family Hx - Social History Hx Tobacco Use: No Hx Alcohol Use: No Hx Substance Use: No - Immunization History Hx Tetanus Toxoid Vaccination: No Hx Influenza Vaccination: No Hx Pneumococcal Vaccination: No Review Of Systems Gastrointestinal: Positive for: Other (abdominal cramping ). Negative for: Vomiting, Diarrhea Genitourinary: Positive for: Other (vaginal spotting ) Physical Exam - Physical Exam Appears: Non-toxic, No Acute Distress Skin: Normal Color, Warm, Dry Head: Atraumatic, Normacephalic Eye(s): bilateral: Normal Inspection Oral Mucosa: Moist Neck: Supple Chest: Symmetrical, No Deformity, No Tenderness Cardiovascular: Rhythm Regular, No Murmur Respiratory: Normal Breath Sounds, No Rales, No Rhonchi, No Wheezing Gastrointestinal/Abdominal: Soft, No Tenderness, No Guarding, No Rebound Extremity: Normal ROM, Capillary Refill (less than 2 seconds ) Neurological/Psych: Oriented x3, Normal Speech, Normal Cognition ED Course And Treatment - Laboratory Results Result Diagrams: 11/09/17 15:48 11/09/17 15:48 O2 Sat by Pulse Oximetry: 100 (on RA) Pulse Ox Interpretation: Normal Medical Decision Making Medical Decision Making: Assessment: abdominal cramping, vaginal spotting Plan: * Bloodwork * Urinalysis * Transvaginal US * Reglan IVP * IV Fluids * reassess and disposition Progress: Bloodwork, UA, Transvaginal US ordered. Reglan IVP and IV Fluids administered. On re-exam, patient is resting comfortably, showing no signs of distress and reports an improvement in her symptoms. Patient is stable for discharge with diagnosis of threatened miscarriage and is advised to f/u with her MILK TREATER within 1-2 days for further evaluation and/or return to the ED if symptoms persist or worsen. Disposition Counseled Patient/Family Regarding: Studies Performed, Diagnosis, Need For Followup - Disposition Referrals: [facility] [Outside] Disposition: HOME/ ROUTINE Disposition Time: 17:51 Condition: STABLE Additional Instructions: follow up with clinic or your alcohol rubber in 2 days call to make an appointment return to ER if symptoms worsens or progress continue your home medications stay hydrated Prescriptions: Ondansetron ODT [Zofran ODT] 4 mg PO TID PRN #12 odt PRN Reason: Nausea/Vomiting Instructions: Threatened Miscarriage (DC) Forms: Gen Discharge Inst Danish, [employer] (Danish) Print Language: GERMAN - Clinical Impression Clinical Impression: Threatened - Scribe Statement The provider has reviewed the documentation as recorded by the Scribe (Kierra Choudhary) Provider Attestation: All medical record entries made by the Scribe were at my direction and personally dictated by me. I have reviewed the chart and agree that the record accurately reflects my personal performance of the history, physical exam, medical decision making, and the department course for this patient. I have also personally directed, reviewed, and agree with the discharge instructions and disposition.
[2017-11-09 16:14] LABS: ALBUMIN 4.1 g/dL (3.5-5.0); ALT/SGPT 23 U/L (9-52); AST/SGOT 34 U/L (14-36); BLOOD UREA NITROGEN 9 mg/dL (7-17); CALCIUM 9.1 mg/dl (8.6-10.4); GFR AFRICAN-AMERICAN > 60; GFR NON-AFRICAN AMERICAN > 60
[2017-11-09 17:26] LABS: SQUAMOUS EPITHIAL 5 /hpf (0-5); URINE AMORPHOUS SEDIMENT RARE /ul (<OCC); URINE BACTERIA OCC (<OCC); URINE BILIRUBIN NEGATIVE (NEGATIVE); URINE BLOOD NEGATIVE (NEGATIVE); URINE CLARITY Hazy (Clear); URINE COLOR Yellow (YELLOW); URINE GLUCOSE (UA) NORMAL (Normal); URINE LEUKOCYTE ESTERASE NEG Leu/uL (Negative); URINE PROTEIN NEGATIVE (NEGATIVE); URINE UROBILINOGEN NORMAL mg/dL (0.2-1.0)
--- NOTE | 2017-11-09 17:32 | US ---
PROCEDURE: OB Pelvic Ultrasound HISTORY: vaginal spotting COMPARISON: None available. FINDINGS: UTERUS: Single Live intrauterine gestation. CRL equivalent to 0.56 cm corresponding to 6 weeks and 2 days gestatioin Gestational sac diameter equivalent to 2.09 corresponding to 6 weeks and 4 days gestation age (Ultrasound estimated): 6 weeks and 3 days Date of delivery (Ultrasound estimated) : 07/02/2018 Heart rate: 130 bpm. Audra-gestational hemorrhage: None. The uterus is retroverted with an apparent arcuate morphology with single intrauterine gestational sac on the right side. CERVIX: Long and closed. No cervical abnormality seen. RIGHT OVARY: Measures 7.5 x 3.1 x 5.2 cm. No mass. Normal flow. Multiple simple cysts, the largest measures 3.1 x 2.5 x 3.1 cm. LEFT OVARY: Measures 2.7 x 1.3 x 1.3 cm. No mass. Normal flow. FREE FLUID: None. OTHER FINDINGS: None. IMPRESSION: Apparent arcuate uterus with intrauterine gestation on the right side. Single live intrauterine gestation with mean gestational age of 6 weeks and 3 days. The estimated date of delivery by ultrasound is 07/02/2018. The ultrasound dates correspond with the clinical dates. Multiple cysts in the right ovary, the largest measures 3.1 cm.
[2017-11-09 18:01] VITALS: BP 100/61; PULSE 80; RESP 16; TEMP 98.6
== END 2017-11-09 18:23 | disposition home or self-care (01) ==
LOC: C.ER 12:29
DX: O20.0 Threatened abortion (principal); Z3A.01 Less than 8 weeks gestation of pregnancy

== ENCOUNTER 2017-12-07 05:01 | Emergency (ER) | payer BC ==
[2017-12-07 05:01] VITALS: BMI 25.8
[2017-12-07 05:12] VITALS: O2SAT 100
[2017-12-07 05:57] LABS: HCG,QUALITATIVE URINE POSITIVE (NEGATIVE); SQUAMOUS EPITHIAL 1 /hpf (0-5); URINE BACTERIA FEW (<OCC); URINE BILIRUBIN NEGATIVE (NEGATIVE); URINE BLOOD NEGATIVE (NEGATIVE); URINE CLARITY Clear (Clear); URINE COLOR Yellow (YELLOW); URINE GLUCOSE (UA) NORMAL (Normal); URINE PROTEIN NEGATIVE (NEGATIVE); URINE UROBILINOGEN NORMAL mg/dL (0.2-1.0)
[2017-12-07 05:58] LABS: URINE LEUKOCYTE ESTERASE TRACE Leu/uL (Negative)
[2017-12-07 06:15] LABS: BASO % 0.4 % (0.0-2.0); EOS % 0.6 % (0.0-4.0); HEMOGLOBIN 12.5 g/dL (11.0-16.0); LYMPH # 1.8 K/uL (1.0-4.3); LYMPH % 22.1 % (20.0-40.0); MEAN CELL VOLUME 86.3 fL (81.0-99.0); MEAN CORPUSCULAR HEMOGLOBIN 29.4 pg (27.0-31.0); MEAN CORPUSCULAR HGB CONC 34.1 g/dL (33.0-37.0); MEAN PLATELET VOLUME 8.9 fL (7.2-11.7); MONO # 0.5 K/uL (0.0-0.8); MONO % 6.5 % (0.0-10.0); NEUT # 5.9 K/uL (1.8-7.0); NEUT % 70.4 % (50.0-75.0); RBC 4.26 Mil/uL (3.80-5.20); RED CELL DISTRIBUTION WIDTH 13.9 % (11.5-14.5); WHITE BLOOD COUNT 8.3 K/uL (4.8-10.8)
--- NOTE | 2017-12-07 06:33 | C.PDOC ---
History Of Present Illness <Dilma Brynat - Last Filed: 12/07/17 06:33> <Frances Phelps - Last Filed: 12/07/17 10:26> 27 year old female who is 10 weeks with Hx of right ovarian cyst presents to the ER with a complaint of pain to the right suprapubic area since last night. Patient states her pain is similar to her previous cysts pains. 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 (Dilma Bryant) History Per: Patient History/Exam Limitations: no limitations Onset/Duration Of Symptoms: Hrs Current Symptoms Are (Timing): Still Present Location Of Pain/Discomfort: Suprapubic Radiation Of Pain To:: None Quality Of Discomfort: Unable To Describe Associated Symptoms: denies: Fever, Nausea, Vomiting, Urinary Symptoms Exacerbating Factors: None Alleviating Factors: None Recent travel outside of the [place]: No Abnormal Vaginal Bleeding: No <Dilma Bryant - Last Filed: 12/07/17 06:33> <Frances Phelps - Last Filed: 12/07/17 10:26> Time Seen by Provider: 12/07/17 05:52 Chief Complaint (Nursing): Abdominal Pain Past Medical History Reviewed: Historical Data, Nursing Documentation, Vital Signs Family History: States: Unknown Family Hx - Social History Hx Tobacco Use: No Hx Alcohol Use: No Hx Substance Use: No - Immunization History Hx Tetanus Toxoid Vaccination: No Hx Influenza Vaccination: No Hx Pneumococcal Vaccination: No <Dilma Bryant - Last Filed: 12/07/17 06:33> Vital Signs: Last Vital Signs Temp 98.4 F 12/07/17 08:04 Pulse 62 12/07/17 08:04 Resp 16 12/07/17 08:04 BP 99/64 L 12/07/17 08:04 Pulse Ox 100 12/07/17 08:04 - [facility] Procedures APPLICATION OF SPLINT (01/25/15) Review Of Systems Constitutional: Negative for: Fever Respiratory: Negative for: Cough Gastrointestinal: Positive for: Abdominal Pain. Negative for: Nausea, Vomiting Genitourinary: Negative for: Dysuria, Hematuria <Dilma Bryant - Last Filed: 12/07/17 06:33> Physical Exam - Physical Exam Appears: Non-toxic Skin: Normal Color, Warm, Dry Head: Atraumatic, Normacephalic Eye(s): bilateral: Normal Inspection Oral Mucosa: Moist Chest: Symmetrical, No Tenderness Cardiovascular: Rhythm Regular Respiratory: Normal Breath Sounds, No Rales, No Rhonchi, No Wheezing Gastrointestinal/Abdominal: Soft, Tenderness (Right suprapubic, no RLQ), No Guarding, No Rebound Neurological/Psych: Oriented x3, Normal Speech <CamWilfredoCalos,Dilma - Last Filed: 12/07/17 06:33> ED Course And Treatment - Laboratory Results Result Diagrams: 12/07/17 06:11 O2 Sat by Pulse Oximetry: 100 (Room air) Pulse Ox Interpretation: Normal Progress Note: Blood work, urinalysis, and transvaginal US ordered. <Dilma Bryant - Last Filed: 12/07/17 06:33> - Laboratory Results Result Diagrams: 12/07/17 06:11 12/07/17 06:11 <Frances Phelps - Last Filed: 12/07/17 10:26> Medical Decision Making <KelleygisselleDilma - Last Filed: 12/07/17 06:33> <Frances Phelps - Last Filed: 12/07/17 10:26> Medical Decision Making: Pt signed out to me at 7am pending US results. Pt was evaluated at 7am. 27 year old female, , presents to the ED for evaluation of right sided pelvic pain since yesterday. Pt admits to h/o ovarian cysts. Notes she had similar episodes in the past with self resolution. States she had US one week ago with her OB with negative results. Denies vaginal discharge, vaginal bleeding, n/v, back pain or fever. Pt notes she took tylenol last night, does not want any medication now. (+) right sided pelvic tenderness/. PROCEDURE: OB Pelvic Ultrasound HISTORY: right suprapubic pain, ovarian cyst, COMPARISON: None available. FINDINGS: UTERUS: Single Live intrauterine gestation. CRL measures 4.1 centimeters equal to 11 weeks 0 days. Gestational sac diameter equivalent to 11 weeks 0 days. Gestation age (Ultrasound estimated): 11 weeks 0 days Date of delivery (Ultrasound estimated) : 06/28/2018 Heart rate: 158 bpm. Audra-gestational hemorrhage: None. Uterus measures 14.5 x 5.9 x 9.7 cm. No mass CERVIX: Long and closed. No cervical abnormality seen. RIGHT OVARY: Measures 4.6 x 3.8 x 4.8 cm. No mass. Normal flow. Follicular cyst, 2.1 centimeters. Minimally complicated cyst with echoes, 2.4 centimeters. LEFT OVARY: Measures 2.6 x 0.9 x 2.0 cm. No mass. Normal flow. FREE FLUID: None. OTHER FINDINGS: None. IMPRESSION: Single live intrauterine gestation of approximately 11 weeks 0 days. No subchorionic hemorrhage. Previously described arcuate morphology of the uterus is not evident on the current examination. Minimally complicated 2.4 centimeter right ovarian cyst. Otherwise unremarkable examination. Discussed with pt and signifanct other results of US. Pt is afebrile, no vomiting or diarrhea, WBC WNL, and clinically pain is pelvic , appendicitis is unlikely. Discussed with pt limitations of workup and instructed to follow up with OB in 1-2 days or return to ER If symptoms persist or worsen. Ptverbalized understanding. Case discussed with dr leahy, agreed upon plan and discharge. (Frances Phelps) Disposition <Dilma Bryant - Last Filed: 12/07/17 06:33> - Disposition Disposition Time: 10:00 <Frances Phelps - Last Filed: 12/07/17 10:26> - Disposition Disposition: HOME/ ROUTINE Condition: STABLE Additional Instructions: Follow up with your OBGYN in 1-2 days. Return to ER if symptoms persist or worsen. 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 - Scribe Statement The provider has reviewed the documentation as recorded by the Scribe <Dilma Bryant - Last Filed: 12/07/17 06:33> <Frances Phelps - Last Filed: 12/07/17 10:26> - Scribe Statement Morales Downing All medical record entries made by the Scribe were at my direction and personally dictated by me. I have reviewed the chart and agree that the record accurately reflects my personal performance of the history, physical exam, medical decision making, and the department course for this patient. I have also personally directed, reviewed, and agree with the discharge instructions and disposition. (Dilma Bryant)
[2017-12-07 06:51] LABS: ALBUMIN 3.8 g/dL (3.5-5.0); ALT/SGPT 14 U/L (9-52); AST/SGOT 30 U/L (14-36); BLOOD UREA NITROGEN 7 mg/dL (7-17); CALCIUM 9.4 mg/dl (8.6-10.4); GFR AFRICAN-AMERICAN > 60; GFR NON-AFRICAN AMERICAN > 60
--- NOTE | 2017-12-07 09:46 | US ---
PROCEDURE: OB Pelvic Ultrasound HISTORY: right suprapubic pain, ovarian cyst, COMPARISON: None available. FINDINGS: UTERUS: Single Live intrauterine gestation. CRL measures 4.1 centimeters equal to 11 weeks 0 days. Gestational sac diameter equivalent to 11 weeks 0 days. Gestation age (Ultrasound estimated): 11 weeks 0 days Date of delivery (Ultrasound estimated) : 06/28/2018 Heart rate: 158 bpm. Audra-gestational hemorrhage: None. Uterus measures 14.5 x 5.9 x 9.7 cm. No mass CERVIX: Long and closed. No cervical abnormality seen. RIGHT OVARY: Measures 4.6 x 3.8 x 4.8 cm. No mass. Normal flow. Follicular cyst, 2.1 centimeters. Minimally complicated cyst with echoes, 2.4 centimeters. LEFT OVARY: Measures 2.6 x 0.9 x 2.0 cm. No mass. Normal flow. FREE FLUID: None. OTHER FINDINGS: None. IMPRESSION: Single live intrauterine gestation of approximately 11 weeks 0 days. No subchorionic hemorrhage. Previously described arcuate morphology of the uterus is not evident on the current examination. Minimally complicated 2.4 centimeter right ovarian cyst. Otherwise unremarkable examination.
[2017-12-07 10:24] VITALS: BP 102/67; PULSE 84; RESP 18; TEMP 98
== END 2017-12-07 10:22 | disposition home or self-care (01) ==
LOC: C.ER 05:01
DX: O34.81 Maternal care for other abnormalities of pelvic organs, first trimester (principal); N83.201 Unspecified ovarian cyst, right side; Z3A.10 10 weeks gestation of pregnancy

== ENCOUNTER 2018-05-28 13:50 | Emergency (ER) | payer BC, MEDICAID ==
[2018-05-28 14:44] VITALS: BMI 33.7
[2018-05-28 15:32] LABS: SQUAMOUS EPITHIAL 24 /hpf (0-5); URINE BACTERIA RARE (<OCC); URINE BILIRUBIN NEGATIVE (NEGATIVE); URINE BLOOD NEGATIVE (NEGATIVE); URINE CALCIUM OXALATE CRYSTALS MOD /hpf (<OCC); URINE CLARITY Hazy (Clear); URINE COLOR Amber (YELLOW); URINE GLUCOSE (UA) NORMAL (Normal); URINE LEUKOCYTE ESTERASE NEG Leu/uL (Negative); URINE PROTEIN NEGATIVE (NEGATIVE)
--- NOTE | 2018-05-28 16:49 | US ---
Indication: Evaluate lower uterine segment Comparison: 1st trimester ultrasound performed 12/07/17 Technique: Real-time ultrasound was performed through the pelvis. Findings: There is a single living fetus in cephalic presentation. Amniotic fluid volume is within normal limits. Posterior fundal placenta. The placenta is not previa. There are no adnexal masses or cysts evident. Cervix length measures approximately 3.1 cm. The study was performed for emergent evaluation, and the whole anatomic survey of the fetus was not performed. Limited visualized anatomy appears unremarkable. This should be performed on an outpatient elective basis as clinically warranted. Measurements and calculations: Fetus has a composite sonographic age of 33 weeks 4 days. This calculation is based on the biparietal diameter, head circumference, abdominal circumference, and femur length. Estimated heart rate 144 beats per min. Estimated weight 2187 g. Impression: Single living fetus with a composite sonographic age of 33 weeks 4 days. Estimated heart rate 144 beats per min.
[2018-05-28] MEDS ORDERED: Lactated Ringer's 1,000 ML IV ONE (17:15)
[2018-05-28] MEDS ORDERED: DEXTROSE IV SCH (17:15)
[2018-05-28] MEDS ORDERED: LACTATED RINGER S IV SCH (17:15)
--- NOTE | 2018-05-28 17:56 | OBHP ---
Datetime: 05/28/2018 14:50 IP Adm Impression: , intrauterine ; No Active Labor; Intact Membranes IP Chief Complaint Other: Suprapubic pain IP Admit Plan: Observation/Evaluation Pelvic Type - PN: Adequate Extremities - PN: Normal Abdomen - PN: Normal Back - PN: Normal Breast - PN: Not Done Lungs - PN: Normal Heart - PN: Normal Thyroid - PN: Normal Neurologic - PN: Normal HEENT - PN: Normal General - PN: Normal EGA AdmitDate IP: 35.0 IP Chief Complaint: Uterine contractions; Maternal discomfort; Other Genitourinary Exam: Normal DTRs - PN: Normal
--- NOTE | 2018-05-28 19:35 | OBDCSUM ---
Datetime: 05/28/2018 19:31 Discharged to, Provider: Home Follow up at, Provider: Dr. Powell Disch Instr Activity: Normal activity Disch Instr Diet: Regular Discharge Instructions, Provider: Routine instructions given Discharge Time: 05/28/2018 19:31 Follow up in weeks, Provider: Scheduled appointment Disch Activity Restrictions: No exercising; Minimize stair-climbing; No sexual activity; Nothing in vagina - [place], tampons, douche Discharge Comment, Provider: 27 yo female with an IUP at 35 weeks per LMP and US at 6.5 wee ks, per [facility] records. EDC 07/02/2018. Pt was referred from Dr. Powell's office to evaluate TITA since c/o of low pelvic pain with Hx of 2 previous C/S's. Pt denies any LOF, VB or VD and admits to adequate movement. Denies urinary or bowel complaints. Denies any fever, chills or recent illness. Dr. Powell reported that pt had complaining of similar pain throughout her entire . PMHX Chlamydia infection 5 yrs ago and treated PSHx: C/S x 2 Ovarian cystectomies bilateral NKDA Social Hx Negative x 3 Agency [employer] Hx: Menarche age 14, Regular menses with normal flow Hx of PCOS Limited OB US No Abnormalities reported. Measurements C/W 33 weeks and 4 days, Nl PABLO but no menti on of abnl TITA. NST Reactive/ Ocassional Variables that improved with position changing UA with Dehydration but no signs of infection No Uterine contractions recorded or palpated A/P 35 weeks IUP with HX of 2 Previous C/S's Chronic Suprapubic pain, non-specific and dissapeared Cx unchanged on repeated exam Feels better and pain controlled with 800 mg of Motrin po D/S home with instrutions and Rx for Feosol daily Advised to continue PNV daily and to increase fiber in diet Counseled re importance of PNC and verbalized understanding Stable and Satisfactory condition Discharge Diagnosis Prov Other: Pelvic pain Suprapubic pain Previous C/S x 2 Datetime: 05/28/2018 19:12 Discharged to, Provider: Home Follow up at, Provider: Dr Powell Disch Instr Activity: Normal activity Disch Instr Diet: Regular Discharge Time: 05/28/2018 19:13 Follow up in weeks, Provider: Thursday05/31/18 Disch Referrals: None
[2018-05-28 23:39] VITALS: BP 113/65; PULSE 85; RESP 20; TEMP 98
== END 2018-05-28 19:34 | disposition home or self-care (01) ==
LOC: C.EROB 13:50
DX: O26.893 Other specified pregnancy related conditions, third trimester (principal); R10.2 Pelvic and perineal pain; Z3A.35 35 weeks gestation of pregnancy
CPT/HCPCS: 76815; 81001; 99283; J7120

== ENCOUNTER 2018-06-19 20:10 | Emergency (ER) | payer BC, MEDICAID ==
[2018-06-19 20:36] VITALS: BMI 33.9
[2018-06-19 21:10] LABS: SQUAMOUS EPITHIAL 22 /hpf (0-5); URINE BACTERIA OCC (<OCC); URINE BILIRUBIN NEGATIVE (NEGATIVE); URINE BLOOD NEGATIVE (NEGATIVE); URINE CLARITY Hazy (Clear); URINE COLOR Yellow (YELLOW); URINE GLUCOSE (UA) NORMAL (Normal); URINE LEUKOCYTE ESTERASE NEG Leu/uL (Negative); URINE PROTEIN NEGATIVE (NEGATIVE); URINE UROBILINOGEN NORMAL mg/dL (0.2-1.0)
--- NOTE | 2018-06-19 21:28 | OBHP ---
Datetime: 06/19/2018 21:20 IP Adm Impression: Term, intrauterine IP Admit Plan: Discharge home Admit Comment, IP Provider: 27yo @ 38.1 Pt presents today with complaints of lower abdominal pelvic pain that started today. Pt states that she constantly has the urge to urinate but nothing co mes out. She denies any LOF, VB or VD PMHX Chlamydia infection 5 yrs ago and treated PSHx: C/S x 2 Ovarian cystectomies bilateral NKDA Social Hx Negative x 3 [employer] Hx: Menarche age 14, Regular menses with normal flow Hx of PCOS Limited OB US No Abnormalities reported. Measurements C/W 33 weeks and 4 days, Nl PABLO but no menti on of abnl TITA. NST Reactive/ Ocassional Variables that improved with position changing UA with Dehydration but no signs of infection No Uterine contractions recorded or palpated A/P IUP @ 38 1/7 WITH HX OF C/S X 2 PELVIC PAIN: UA NEGATIVE. NST REACTIVE, NO CONTRACTIONS NOTED ON THE MONITO PT TO FOLLOW UP WED WITH DR CUNNINGHAM DISCHARGE HOME Pelvic Type - PN: Adequate Extremities - PN: Normal Abdomen - PN: Normal Back - PN: Normal Breast - PN: Normal Lungs - PN: Normal Heart - PN: Normal Thyroid - PN: Normal Neurologic - PN: Normal HEENT - PN: Normal General - PN: Normal FHR - Baseline A Provider: 150 Comments, ACOG Physical Exam: SVE: CLOSED/LONG/HI EGA AdmitDate IP: 38.1 IP Chief Complaint: Maternal discomfort NICHD Variability Prov Fetus A: Moderate 6-25bpm NICHD Accel Fetus A IP Provider: [id number] FHR Category Provider Fetus A: Category I Genitourinary Exam: Normal DTRs - PN: Normal Datetime: 05/28/2018 14:50 Presentation-Admit: Vertex Membranes, Provider: Intact Contraction Comments Provider: None Gestation - Est Wks by US: 35.0 Vital Signs Provider: Reviewed; Within Normal Limits NICHD Decel Fetus A IP Provider: None Dilatation, Provider: 0 Effacement, Provider: 50 Station, Provider: -3
[2018-06-20 02:13] VITALS: BP 107/62; PULSE 89; RESP 18; TEMP 98.2
== END 2018-06-19 21:40 | disposition home or self-care (01) ==
LOC: C.EROB 20:10
DX: O26.893 Other specified pregnancy related conditions, third trimester (principal); R10.2 Pelvic and perineal pain; Z3A.38 38 weeks gestation of pregnancy

== ENCOUNTER 2018-06-28 07:20 | Inpatient (IN) | payer BC, MEDICAID ==
[2018-06-28] MEDS ORDERED: Lactated Ringer's 1,000 ML IV ONE (07:58)
[2018-06-28] MEDS ORDERED: Sodium Citrate/Citric Acid 15 ml Sol PO ONE (08:03)
[2018-06-28] MEDS ORDERED: cefOXitin IV 2 gm in Dextrose 2 GM/50 ML BAG IVPB ONE (08:03)
[2018-06-28 08:14] LABS: BASO % 0.4 % (0.0-2.0); EOS # 0.1 K/uL (0.0-0.7); EOS % 0.6 % (0.0-4.0); HEMOGLOBIN 12.2 g/dL (11.0-16.0); LYMPH # 1.6 K/uL (1.0-4.3); LYMPH % 16.2 % (20.0-40.0); MEAN CELL VOLUME 88.7 fL (81.0-99.0); MEAN CORPUSCULAR HEMOGLOBIN 30.6 pg (27.0-31.0); MEAN CORPUSCULAR HGB CONC 34.5 g/dL (33.0-37.0); MEAN PLATELET VOLUME 9.3 fL (7.2-11.7); MONO # 0.7 K/uL (0.0-0.8); MONO % 7.3 % (0.0-10.0); NEUT # 7.3 K/uL (1.8-7.0); NEUT % 75.5 % (50.0-75.0); NRBC % 0.1 % (0.0-2.0); RBC 3.97 Mil/uL (3.80-5.20); RED CELL DISTRIBUTION WIDTH 14.2 % (11.5-14.5); WHITE BLOOD COUNT 9.7 K/uL (4.8-10.8)
[2018-06-28] MEDS ORDERED: Lactated Ringer's 1,000 ML IV SCH (08:15)
[2018-06-28 08:27] LABS: SQUAMOUS EPITHIAL 33 /hpf (0-5); URINE BACTERIA OCC (<OCC); URINE BILIRUBIN NEGATIVE (NEGATIVE); URINE BLOOD NEGATIVE (NEGATIVE); URINE CLARITY Hazy (Clear); URINE COLOR Yellow (YELLOW); URINE GLUCOSE (UA) NORMAL (Normal); URINE LEUKOCYTE ESTERASE NEG Leu/uL (Negative); URINE PROTEIN NEGATIVE (NEGATIVE); URINE UROBILINOGEN NORMAL mg/dL (0.2-1.0)
[2018-06-28] MEDS ORDERED: Oxytocin 20 units in LR 2,000 ML IV ONE (08:37)
[2018-06-28] MEDS ORDERED: cefOXitin IV 2 gm in Saline 2 GM/50 ML BAG IVPB ONE (08:37)
[2018-06-28] MEDS ORDERED: ePHEDrine 50 mg/ml Inj ONE (08:59)
[2018-06-28] MEDS ORDERED: Morphine 1 mg/ml preservative-free Inj(Duramorph) ONE (08:59)
--- NOTE | 2018-06-28 16:21 | PCM.SURG1 ---
Surgeon's Initial Post Op Note - Surgeon's Notes Surgeon: Dr. Powell Label Paster: Dr. Delgadillo Type of Anesthesia: Spinal Pre-Operative Diagnosis: previous delivery, multiparity desires permanent sterilization Operative Findings: female in cephalic presentation Apgars 9/9, multiple adhesions between uterus and anterior abdominal wall. Normal appearing ovaries and fallopian tubes Post-Operative Diagnosis: same Operation Performed: Repeat low transverse delivery, bilateral salpingectomy Specimen/Specimens Removed: placenta, cord blood Estimated Blood Loss: EBL {In ML}: 500 Blood Products Given: N/A Drains Used: No Drains Post-Op Condition: Good Date of Surgery/Procedure: 06/28/18 Time of Surgery/Procedure: 16:20
[2018-06-28] MEDS: Simethicone 80 mg Chewtab PO SCH (21:51)
[2018-06-29 08:20] LABS: HEMOGLOBIN 11.9 g/dL (11.0-16.0); MEAN CELL VOLUME 89.7 fL (81.0-99.0); MEAN CORPUSCULAR HEMOGLOBIN 30.5 pg (27.0-31.0); MEAN PLATELET VOLUME 9.3 fL (7.2-11.7); RBC 3.89 Mil/uL (3.80-5.20); RED CELL DISTRIBUTION WIDTH 14.1 % (11.5-14.5); WHITE BLOOD COUNT 11.5 K/uL (4.8-10.8)
[2018-06-29] MEDS: Simethicone 80 mg Chewtab PO SCH ×4 (10:40→22:42)
[2018-06-29] MEDS: Oxycodone/Acetaminophen 5/325 mg Tab PO PRN ×3 (10:43→22:44)
[2018-06-30] MEDS: Simethicone 80 mg Chewtab PO SCH ×4 (10:27→23:03)
[2018-06-30] MEDS: Oxycodone/Acetaminophen 5/325 mg Tab PO PRN ×3 (10:28→20:42)
--- NOTE | 2018-06-30 20:46 | OBPPN ---
Datetime: 06/30/2018 20:42 PP BM Prov: No Vital Signs Provider PP: Reviewed Datetime: 06/29/2018 20:44 PP Pain Prov: Within normal limits PP Nausea Prov: Denies PP Flatus Prov: No PP Breasts Prov: Normal PP Heart Prov: Normal PP Lungs Prov: Normal PP Abdomen/Uterus Prov: Normal PP Lochia Prov: Normal PP Vulva/Perineum Prov: Normal PP CVA Tenderness Prov: Normal PP Extremities Prov: Normal PP C/S Incision Prov: Normal PP Progress Prov: Normal PP Impression Prov: Normal progression PP Plan Prov: Continue present management PP Progress Note Prov: PPD#1, work on ambulation, pain control, continue present management IP PP Procedures: None
[2018-07-01 08:46] VITALS: BP 113/65; PULSE 79; RESP 20; TEMP 97.6; O2SAT 99
[2018-07-01] MEDS: Simethicone 80 mg Chewtab PO SCH (10:37)
== END 2018-07-01 13:45 | disposition home or self-care (01) | DRG 785 ==
LOC: C.EROB 07:20 → C.4D 07:55 → C.4M 18:45
PROVIDERS: ADMIT Obstetrics & Gynecology; ATTEND Obstetrics & Gynecology
PROC: 10D00Z1 Extraction of Products of Conception, Low, Open Approach (ICD-10-PCS; principal; 2018-06-28)
PROC: 0UT70ZZ Resection of Bilateral Fallopian Tubes, Open Approach (ICD-10-PCS; 2018-06-28)
DX: O34.211 Maternal care for low transverse scar from previous cesarean delivery (principal); Z3A.39 39 weeks gestation of pregnancy; Z37.0 Single live birth; Z30.2 Encounter for sterilization